=== PATIENT | female | born 1985 | race Caucasian/White ===

== ENCOUNTER 2016-06-13 17:06 | Emergency (ER) | payer OTHER ==
[~2016-06-13] VITALS: Ht 160 cm; Wt 59.0 kg
[2016-06-13 17:28] VITALS: BP 121/87
[2016-06-13] MEDS ORDERED: IV NS 0.9% 1,000 ML IV ONE ×2 (18:00)
[2016-06-13] MEDS ORDERED: ONDANSETRON HCL/PF - ER 4 MG/2 ML VIAL IV ONE (18:00)
[2016-06-13] MEDS ORDERED: IV NS 0.9% 2,000 ML ONE (18:04)
[2016-06-13] MEDS ORDERED: IV SET PRIMARY 1 EA INFUS.SET MC ONE (18:04)
[2016-06-13] MEDS ORDERED: ONDANSETRON HCL/PF 4 MG/2 ML VIAL ONE (18:04)
== END 2016-06-13 18:47 | disposition home or self-care (01) ==
LOC: ER 17:07
DX: J06.9 Acute upper respiratory infection, unspecified (principal); Z88.2 Allergy status to sulfonamides
CPT/HCPCS: 99283; A4606; J2405; J7030; Z7610